=== PATIENT | male | born 1975 | race Caucasian/White ===

== ENCOUNTER 2017-12-29 11:46 | Emergency (ER) | payer OTHER ==
[2017-12-29] MEDS ORDERED: ZOFRAN ODT 4 MG ONE (11:58)
--- NOTE | 2017-12-29 12:03 | ERPHSYRPT ---
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 The patient arrives with a deep laceration of the right index finger. Pt was rinsed with saline after the accident. Pt is not up to date with his tetanus shots. Pt describes the pain as sharp, constant, 5/10, worse with movement and pt has not taken any pain meds. Occurred: just prior to arrival Method of Injury: direct blow Quality: constant Severity of Pain-Max: moderate Severity of Pain-Current: moderate Extremities Pain Location: 2nd finger: right Modifying Factors: Improves With: nothing Associated Symptoms: none Allergies/Adverse Reactions: No Known Drug Allergies Allergy (Unverified 12/29/17 12:07) - Review of Systems Constitutional: No Fever, No Chills Eyes: No Symptoms Ears, Nose, & Throat: No Symptoms Respiratory: No Cough, No Dyspnea Cardiac: No Chest Pain, No Edema, No Syncope Abdominal/Gastrointestinal: No Abdominal Pain, No Nausea, No Vomiting, No Diarrhea Genitourinary Symptoms: No Dysuria Musculoskeletal: No Back Pain, No Neck Pain Skin: Other (finger laceration), No Rash Neurological: No Dizziness, No Focal Weakness, No Sensory Changes Psychological: No Symptoms Endocrine: No Symptoms All Other Systems: Reviewed and Negative - Nursing Vital Signs Nursing Vital Signs: Initial Vital Signs Temperature 98.7 F 12/29/17 11:51 Pulse Rate 71 12/29/17 11:51 Respiratory Rate 18 12/29/17 11:51 Blood Pressure 140/88 12/29/17 11:51 O2 Sat by Pulse Oximetry 98 12/29/17 11:51 Pain Scale Pain Intensity 5 - Physical Exam General Appearance: alert Eyes, Ears, Nose, Throat Exam: moist mucous membranes Neck Exam: non-tender, supple Cardiovascular/Respiratory Exam: chest non-tender, normal breath sounds, regular rate/rhythm, no respiratory distress Abdominal Exam: non-tender, No guarding Back Exam: normal inspection, No vertebral tenderness Shoulder Exam: normal inspection Elbow/Forearm Exam: normal inspection Wrist Exam: normal inspection Hand Exam: bone tenderness, laceration, limited ROM Neuro/Tendon Exam: normal sensation, normal motor functions Mental Status Exam: alert, oriented x 3, cooperative Skin Exam: normal color, warm, dry - Course Nursing assessment & vital signs reviewed: Yes Ordered Tests: Active Orders 24 hr Category Date Time Status IV Insertion STAT Care 12/29/17 12:36 Active Splint STAT Care 12/29/17 12:54 Active FINGER(S) Stat Exams 12/29/17 12:21 Completed Medication Summary Discontinued Medications Generic Name Dose Route Start Last Admin Trade Name Madhav PRN Reason Stop Dose Admin Cefazolin Sodium Confirm 12/29/17 12:45 Kefzol 1 Gm Administered 12/29/17 12:46 Dose 2 g .ROUTE .STK-MED ONE Diphtheria/Tetanus/Acell Pertussis 0.5 ml 12/29/17 12:06 12/29/17 12:11 Adacel Vial IM 12/29/17 12:07 0.5 ml .ONCE ONE Administration Diphtheria/Tetanus/Acell Pertussis Confirm 12/29/17 12:09 Adacel Vial Administered 12/29/17 12:10 Dose 0.5 ml IM .STK-MED ONE Cefazolin Sodium/Dextrose 2 gm in 50 mls @ 100 mls/hr 12/29/17 12:37 13:11 Cefazolin 2 Gm-D5w Bag IV 12/29/17 13:06 100 mls/hr STAT STA Administration Sodium Chloride Confirm 12/29/17 12:45 Sodium Chloride 0.9% 100 Ml Ivpb Administered 12/29/17 12:46 Dose 100 mls @ ud IV .STK-MED ONE Ketorolac Tromethamine 30 mg 12/29/17 12:36 12/29/17 13:10 Toradol 30 Mg Injection IV 12/29/17 12:37 30 mg STAT ONE Administration Ketorolac Tromethamine Confirm 12/29/17 12:45 Toradol 30 Mg Injection Administered 12/29/17 12:46 Dose 30 mg .ROUTE .STK-MED ONE Ondansetron HCl Confirm 12/29/17 11:58 Zofran Odt 4 Mg Administered 12/29/17 11:59 Dose 4 mg .ROUTE .STK-MED ONE Ondansetron HCl 4 mg 12/29/17 12:04 12/29/17 12:11 Zofran Odt 4 Mg PO 12/29/17 12:05 4 mg STAT ONE Administration - Progress Progress: improved Progress Note: 12/29/17 12:48 The finger x ray is negative. I spoke to hand surgeon, Dr Salcido who wants the patient to be cleaned with saline, dressing changes and splinted. Pt will be given a dose of ancef and will be started on keflex for 10 days. He can see the patient on Monday or Monday of next week. - Departure Time of Disposition: 12:50 Departure Disposition: Home Clinical Impression: Finger laceration Qualifiers: Encounter type: initial encounter Finger: index finger Damage to nail status: without damage Foreign body presence: without foreign body Laterality: right Qualified Code(s): S61.210A - Laceration without foreign body of right index finger without damage to nail, initial encounter Condition: Stable Critical Care Time: No Referrals: PILAR SALCIDO [NON-STAFF PHY W/O PRIVILEGES] - Instructions: Wound Care (DC), Laceration Infection (DC) Additional Instructions: Call Dr Salcido's office today to set up an appointment for next Monday or Monday. Finish the antibiotics until completion. Prescriptions: Cephalexin Mh 500 mg [Keflex 500 mg] 500 mg PO QID #40 capsule Hydrocodone Bit/Acetaminophen [[place] 5-325 Tablet] 1 each PO QID PRN #15 tablet MDD 4 PRN Reason: Severe Pain Ketorolac Tromethamine [Toradol] 10 mg PO QID PRN #30 tablet PRN Reason: Pain
[2017-12-29] MEDS ORDERED: ZOFRAN ODT 4 MG PO ONE (12:04)
[2017-12-29] MEDS ORDERED: Adacel Vial IM ONE ×2 (12:06→12:09)
--- NOTE | 2017-12-29 12:31 | XRAY ---
Indication: Laceration. Comparison: None 3 views of the left 2nd finger demonstrates distal soft tissue laceration. No other bony, articular, or soft tissue abnormalities.
[2017-12-29] MEDS ORDERED: TORAdol 30 mg Injection IV ONE (12:36)
[2017-12-29] MEDS ORDERED: CEFAZOLIN 2 GM-D5W BAG** 2 GM/50 ML ML IV STA (12:37)
[2017-12-29] MEDS ORDERED: TORAdol 30 mg Injection ONE (12:45)
[2017-12-29] MEDS ORDERED: Sodium Chloride 0.9% 100 ML IVPB 100 ML IV ONE (12:45)
[2017-12-29] MEDS ORDERED: KEFZOL 1 GM ONE (12:45)
[2017-12-29 13:49] VITALS: BP 133/74; PULSE 74; O2SAT 97
== END 2017-12-29 13:53 | disposition home or self-care (01) ==
LOC: ED 11:46
DX: S61.210A Laceration without foreign body of right index finger without damage to nail, initial encounter (principal); W31.89XA Contact with other specified machinery, initial encounter
CPT/HCPCS: 36000; 73140; 90471; 90715; 96365; 96372; 96374; 99284; J0690; J1885; Q0162